=== PATIENT | female | born 1955 | race Asian ===

== ENCOUNTER 2021-02-04 11:35 | Emergency (ER) | payer OTHER ==
[~2021-02-04] VITALS: Ht 167.6 cm; Wt 75.0 kg
[2021-02-04 12:00] VITALS: BP 130/77
[2021-02-04] MEDS ORDERED: ACETAMINOPHEN 500 MG TABLET PO ONE (12:30)
== END 2021-02-04 13:30 | disposition home or self-care (01) ==
LOC: EMS 11:35
DX: S80.01XA Contusion of right knee, initial encounter (principal); Z91.040 Latex allergy status; W01.0XXA Fall on same level from slipping, tripping and stumbling without subsequent striking against object, initial encounter; Y93.01 Activity, walking, marching and hiking; Y92.89 Other specified places as the place of occurrence of the external cause; Y99.8 Other external cause status
CPT/HCPCS: 99283

== ENCOUNTER 2021-12-02 10:15 | Emergency (ER) | payer OTHER ==
[~2021-12-02] VITALS: Ht 162.6 cm; Wt 70.5 kg
[2021-12-02] MEDS ORDERED: IBUPROFEN 600 MG TABLET PO ONE (12:15)
[2021-12-02] MEDS ORDERED: IBUP-2070 PO (12:18)
[2021-12-02 13:02] VITALS: BP 160/93
== END 2021-12-02 13:20 | disposition home or self-care (01) ==
LOC: EMS 10:20
DX: S20.212A Contusion of left front wall of thorax, initial encounter (principal); R03.0 Elevated blood-pressure reading, without diagnosis of hypertension; Z91.040 Latex allergy status; W18.39XA Other fall on same level, initial encounter; Y93.89 Activity, other specified; Y92.89 Other specified places as the place of occurrence of the external cause; Y99.8 Other external cause status
CPT/HCPCS: 71101; 99283

== ENCOUNTER 2024-05-17 08:57 | Emergency (ER) | payer MEDICARE, OTHER ==
[~2024-05-17] VITALS: Ht 162.6 cm; Wt 86.4 kg
[~2024-05-17 08:57] MED LIST: IBUP-1492 PO
[2024-05-17 08:59] VITALS: BP 132/80; PULSE 98; RESP 18; TEMP 98.1
[2024-05-17] MEDS ORDERED: AMLO2.5T29 PO (09:01)
[2024-05-17] MEDS ORDERED: LOSA100T59 PO (09:01)
[2024-05-17] MEDS: KETOROLAC TROMETHAMINE 30 MG/ML VIAL IM ONE (09:51)
[2024-05-17] MEDS: LIDOCAINE 5% TRANSDERMAL PATCH TD ONE (09:52)
[2024-05-17] MEDS: METHOCARBAMOL 500 MG TABLET PO ONE (09:52)
[2024-05-17] MEDS ORDERED: METH-659 PO ×2 (10:41→17:27)
[2024-05-17] MEDS ORDERED: IBUP-1492 PO ×2 (10:41→17:27)
== END 2024-05-17 11:33 | disposition home or self-care (01) ==
LOC: EMS 08:57
DX: S29.012A Strain of muscle and tendon of back wall of thorax, initial encounter (principal); M25.511 Pain in right shoulder; Z91.040 Latex allergy status; X58.XXXA Exposure to other specified factors, initial encounter; Y93.89 Activity, other specified; Y92.89 Other specified places as the place of occurrence of the external cause; Y99.8 Other external cause status
CPT/HCPCS: 99283; 73030; 96372; J1885